=== PATIENT | female | born 1950 | race Caucasian/White ===

== ENCOUNTER 2017-08-03 13:21 | Observation (INO) | payer MEDICARE ==
[~2017-08-03] VITALS: Ht 162.6 cm; Wt 115.4 kg
[~2017-08-03 13:21] MED LIST: AMOX/K CLAV875 M1 PO; AMOXICILLIN/CL875 MG OR; AUGMENTIN875TAB PO; CALCIUM OR; CIPRO500 MG PO; FLONASE NASAL50 MCG; FLOXIN OTIC0.3 % OT; INDOMETHACIN50 MG PO; LOTREL 5/101 CAP OR; MULTIVITAM10 OR; STOOL SOFTENER100 MG PO; TRIAMCINOLON0.5 % EX; ULTRAM50 M1 PO; VISTARIL25 MG PO; VITAMIN D PO; ZOVIRAX400 MG PO
[2017-08-03 13:52] LABS: IMMATURE GRANULOCYTES 0.3 % (0.0-1.0); MEAN CELL VOLUME 96.9 fL CALC (80.0-100.0); MEAN CORPUSCULAR HGB 32.2 pG CALC (26.0-32.0); MEAN CORPUSCULAR HGB CONC 33.3 g/L CALC (32.0-36.0); NEUT# 4.48 thou/uL (2.00-7.15); RED BLOOD COUNT 5.09 mill/uL (4.20-5.60); RED CELL DISTRI WIDTH 13.1 % (11.5-15.5)
[2017-08-03 13:53] LABS: HEMATOCRIT 49.3 % (37.0-47.0); HEMOGLOBIN 16.4 g/dl (12.0-16.0)
[2017-08-03] MEDS ORDERED: FOSAMAX PLUS1 TAB PO (13:56)
[2017-08-03 14:03] LABS: ANION GAP 15 (6-22 (CALC)); BUN 11 mg/dL (8-23); BUN/CREATININE RATIO 14 (12-20 (CALC)); CARBON DIOXIDE 29 mmol/l (22-30); CHLORIDE 104 mmol/l (95-108); CREATININE 0.8 mg/dL (0.5-1.0); GFR > 60 ML/MIN (>=60 (CALC)); GFR FOR AFR.AMER. > 60 ML/MIN (>=60 (CALC)); POTASSIUM 4.4 mmol/l (3.5-5.1); SODIUM 144 mmol/l (137-146)
[2017-08-03 15:30] VITALS: BP 177/98
[2017-08-03 20:00] VITALS: BP 141/89
[2017-08-04 00:05] VITALS: BP 135/81
[2017-08-04 04:20] VITALS: BP 128/89
[2017-08-04 05:45] LABS: CHOLESTEROL HDL RATIO 3.2 (<4.4 (CALC))
[2017-08-04 07:34] VITALS: BP 143/82
[2017-08-04] MEDS ORDERED: PEPCID20 MG PO (12:29)
[2017-08-04] MEDS ORDERED: ASPIRIN ADULT L81 M2 PO (12:29)
[2017-08-04] MEDS ORDERED: NITROSTAT0.4 MG SL (12:31)
== END 2017-08-04 14:07 | disposition home or self-care (01) ==
LOC: ED 13:21 → ED-I 14:35 → ED 14:36 → MS2 14:37
PROVIDERS: Family Medicine; Nurse Practitioner Family; ADMIT Internal Medicine; ATTEND Internal Medicine
DX: I20.9 Angina pectoris, unspecified (principal); M81.0 Age-related osteoporosis without current pathological fracture; F17.210 Nicotine dependence, cigarettes, uncomplicated; E66.9 Obesity, unspecified; Z68.41 Body mass index [BMI] 40.0-44.9, adult

== ENCOUNTER 2018-10-29 07:15 | Day surgery (SDC) | payer MEDICARE ==
[~2018-10-29 07:15] MED LIST changes: +ASPIRIN ADULT L81 M2 PO; +CALCIUM600 M1 PO; +FOSAMAX PLUS1 TAB PO; +FUROSEMIDE20 MG PO; +GABAPENTIN100 MG PO; +LISINOPRIL5 MG PO; +LOPRESSOR50 M2 PO; +MULTIVITAMI9 PO; +NITROSTAT0.4 MG SL; +PEPCID20 MG PO; +POTASSIUM99 MG PO; +STOOL SOFTE1 PO
[2018-10-29 10:37] VITALS: BP 152/69
== END 2018-10-29 10:32 | disposition home or self-care (01) ==
LOC: ENDO 07:15
PROVIDERS: ATTEND Surgery
PROC: 0DBP8ZX Excision of Rectum, Via Natural or Artificial Opening Endoscopic, Diagnostic (ICD-10-PCS; principal; 2018-10-29)
DX: K63.5 Polyp of colon (principal); K57.30 Diverticulosis of large intestine without perforation or abscess without bleeding

== ENCOUNTER 2020-08-30 | Emergency (ER) | payer MEDICARE ==
[2020-08-31] MEDS ORDERED: TORADOL PO ×2 (00:15→00:33)
[2020-08-31] MEDS ORDERED: ATENOLOL25 MG PO (00:41)
== END 2020-08-31 00:49 | disposition home or self-care (01) ==
DX: S83.92XA Sprain of unspecified site of left knee, initial encounter (principal); I10 Essential (primary) hypertension; G62.9 Polyneuropathy, unspecified; X50.0XXA Overexertion from strenuous movement or load, initial encounter
CPT/HCPCS: L1830

== ENCOUNTER 2022-05-13 11:17 | Emergency (ER) | payer MEDICARE ==
[~2022-05-13] VITALS: Ht 162.6 cm; Wt 129.2 kg
[~2022-05-13 11:17] MED LIST changes: +ATENOLOL25 MG PO; +TORADOL PO
[2022-05-13 11:47] VITALS: BP 161/87
[2022-05-13 12:16] VITALS: BP 161/82
[2022-05-13 12:19] LABS: URINE BILIRUBIN - DIPSTICK NEGATIVE (NEGATIVE); URINE BLOOD DIPSTICK NEGATIVE (NEGATIVE); URINE COLOR YELLOW; URINE GLUCOSE - DIPSTICK >=1000 mg/dL (NEGATIVE); URINE KETONE NEGATIVE (NEGATIVE); URINE LEUK ESTERASE NEGATIVE (NEGATIVE); URINE PROTEIN - DIPSTICK NEGATIVE (NEG-TRACE); URINE SPECIFIC GRAVITY 1.015; URINE UROBILINOGEN - DIPSTICK 0.2 E.U./dL (0.2)
[2022-05-13 12:21] LABS: HEMOGLOBIN 15.8 g/dl (12.0-16.0); IMMATURE GRANULOCYTES 0.3 % (0.0-5.0); MEAN CELL VOLUME 97.5 fL CALC (80.0-100.0); MEAN CORPUSCULAR HGB 32.8 pG CALC (26.0-32.0); MEAN CORPUSCULAR HGB CONC 33.6 g/dL CAL (32.0-36.0); NEUT# 3.67 thou/uL (2.00-7.15); RED BLOOD COUNT 4.82 mill/uL (4.20-5.60); RED CELL DISTRI WIDTH 13.3 % (11.5-15.5)
[2022-05-13 12:22] LABS: GFR FOR AFR.AMER. > 60 ML/MIN (>=60 (CALC)); GFR OTHER RACES > 60 ML/MIN (>=60 (CALC)); URINE NITRITE - DIPSTICK NEGATIVE (Negative)
[2022-05-13 12:36] LABS: ALBUMIN 4.1 g/dL (3.2-5.0); ALKALINE PHOSPHATASE 67 u/l (38-126); ANION GAP 12 (6-22 (CALC)); BILIRUBIN, TOTAL 0.5 mg/dL (0.0-1.4); BUN 19 mg/dL (8-23); BUN/CREATININE RATIO 28 (12-20 (CALC)); CARBON DIOXIDE 29 mmol/l (22-30); CHLORIDE 104 mmol/l (95-108); CREATININE 0.7 mg/dL (0.5-1.0); GFR FOR AFR.AMER. > 60 ML/MIN (>=60 (CALC)); GFR OTHER RACES > 60 ML/MIN (>=60 (CALC)); LIPASE 139 u/l (23-300); POTASSIUM 4.2 mmol/l (3.5-5.1); SGOT/AST 34 u/l (9-36); SODIUM 141 mmol/l (137-146); TOTAL PROTEIN 6.9 g/dL (6.3-8.2)
[2022-05-13 13:01] VITALS: BP 161/80
[2022-05-13] MEDS ORDERED: VALACYCLOVIR HCL1 GM PO (14:32)
[2022-05-13 14:37] VITALS: BP 161/805
== END 2022-05-13 14:51 | disposition home or self-care (01) ==
LOC: ED 11:17
PROVIDERS: Family Medicine
DX: B02.9 Zoster without complications (principal); I10 Essential (primary) hypertension; G62.9 Polyneuropathy, unspecified; E66.9 Obesity, unspecified
CPT/HCPCS: Q9967